=== PATIENT | female | born 1945 | race Caucasian/White ===

== ENCOUNTER 2023-09-23 10:30 | Day surgery (SDC) | payer MEDICARE, OTHER ==
[2023-09-23] MEDS: Polymyxin B/Trimethoprim 10 ML Bottle EYELF SCH (09:47)
[2023-09-23] MEDS: Brimonidine 0.2% Ophth Soln 5 ML Bottle EYELF SCH (09:52)
[2023-09-23] MEDS: Phenylephrine 2.5% Ophth Soln 2 ML Bot EYELF SCH (09:57)
[2023-09-23] MEDS: Tropicamide 1% Ophth Soln 3 ML Bottle EYELF SCH (10:02)
[~2023-09-23 10:30] MED LIST: Ondansetron 4 MG/2 ML SDV IVPUSH PRN
[2023-09-23] MEDS: Tetracaine HCl/PF 0.5% 4 ML Bottle EYEBOTH SCH (10:58)
[2023-09-23] MEDS: Lidocaine 1% PF 2 ML SDV INJECT SCH (11:22)
[2023-09-23] MEDS: Cefuroxime 10 MG/ML SYRINGE EYELF SCH (11:36)
[2023-09-23] MEDS: Pilocarpine 4% Ophth Soln 15 ML Bot EYELF SCH (11:37)
== END 2023-09-23 11:49 | disposition home or self-care (01) ==
LOC: JD.SDS 10:30
PROVIDERS: ATTEND Ophthalmology
DX: H25.813 Combined forms of age-related cataract, bilateral (principal); I10 Essential (primary) hypertension; H40.033 Anatomical narrow angle, bilateral; H16.103 Unspecified superficial keratitis, bilateral; H16.223 Keratoconjunctivitis sicca, not specified as Sjogren's, bilateral; H02.831 Dermatochalasis of right upper eyelid; H02.834 Dermatochalasis of left upper eyelid; H43.813 Vitreous degeneration, bilateral; Z79.899 Other long term (current) drug therapy; Z98.890 Other specified postprocedural states
CPT/HCPCS: 66984; A9270; J0697; 00142; 99100; J3490; V2788-GY

== ENCOUNTER 2023-10-28 08:50 | Day surgery (SDC) | payer MEDICARE, OTHER ==
[2023-10-28] MEDS: Polymyxin B/Trimethoprim 10 ML Bottle EYERT SCH (08:20)
[2023-10-28] MEDS: Brimonidine 0.2% Ophth Soln 5 ML Bottle EYERT SCH (08:25)
[2023-10-28] MEDS: Phenylephrine 2.5% Ophth Soln 2 ML Bot EYERT SCH (08:30)
[2023-10-28] MEDS: Tropicamide 1% Ophth Soln 3 ML Bottle EYERT SCH (08:40)
[2023-10-28] MEDS: Tetracaine HCl/PF 0.5% 4 ML Bottle EYEBOTH SCH (09:37)
[2023-10-28] MEDS: Lidocaine 1% PF 2 ML SDV INJECT SCH (10:09)
[2023-10-28] MEDS: Cefuroxime 10 MG/ML SYRINGE EYERT SCH (10:18)
[2023-10-28] MEDS: Pilocarpine 4% Ophth Soln 15 ML Bot EYERT SCH (10:24)
== END 2023-10-28 10:33 | disposition home or self-care (01) ==
LOC: JD.SDS 08:50
PROVIDERS: ATTEND Ophthalmology
DX: H25.811 Combined forms of age-related cataract, right eye (principal); H40.031 Anatomical narrow angle, right eye; H40.051 Ocular hypertension, right eye; H57.813 Brow ptosis, bilateral; H02.831 Dermatochalasis of right upper eyelid; H02.834 Dermatochalasis of left upper eyelid; H35.373 Puckering of macula, bilateral; Z96.1 Presence of intraocular lens; I10 Essential (primary) hypertension; F17.200 Nicotine dependence, unspecified, uncomplicated; Z79.899 Other long term (current) drug therapy
CPT/HCPCS: 66984; A9270; J0697; J3490